=== PATIENT | female | born 1990 | race Caucasian/White ===

== ENCOUNTER 2016-10-14 08:20 | Emergency (ER) | payer OTHER ==
[~2016-10-14] VITALS: Ht 157.5 cm; Wt 49.0 kg
[2016-10-14 08:55] VITALS: BP 112/80
== END 2016-10-14 11:17 | disposition home or self-care (01) ==
LOC: ER 08:20
DX: O20.0 Threatened abortion (principal); Z3A.00 Weeks of gestation of pregnancy not specified; Z88.1 Allergy status to other antibiotic agents
CPT/HCPCS: 36415; 84702

== ENCOUNTER 2016-11-15 12:02 | Emergency (ER) | payer OTHER ==
[~2016-11-15] VITALS: Ht 157.5 cm; Wt 49.0 kg
[2016-11-15 13:33] LABS: Basophils # (auto) 0 uL; Basophils % (auto) 0.5 % (0.0-2.0); Eosinophils # (auto) 0.1 uL; Eosinophils % (auto) 2.1 % (0.0-7.0); Hematocrit 39.4 % (36.0-46.0); Hemoglobin 13.3 g/dL (12.2-16.2); Lymphocytes # (auto) 1.8 uL; Lymphocytes % (auto) 29.9 % (10.0-50.0); Mean Corpuscular Hemoglobin 30.8 pg (28.0-32.0); Mean Corpuscular Hgb Conc. 33.8 g/dL (32.0-36.0); Mean Corpuscular Volume 91.2 fL (80.0-100.0); Monocytes # (auto) 0.4 uL; Monocytes % (auto) 7.2 % (0.0-12.0); Neutrophils # (auto) 3.6 uL; Neutrophils % (auto) 60.3 % (37.0-80.0); Platelet Count (auto) 295 10^3/uL (140-450); Red Cell Distribution Width 12.4 % (11.6-16.0)
[2016-11-15 16:39] VITALS: BP 111/73
[2016-11-15 20:52] LABS: Urine Bilirubin Negative (Negative); Urine Color Colorless (Yellow); Urine Glucose Normal (Normal); Urine Ketone Negative (Negative); Urine Nitrite Negative (Negative); Urine RBC 7 /hpf (0 - 4); Urine Squamous Epithelial Cell FEW /hpf (<5); Urine Urobilinogen Normal (Negative); Urine pH 6.5 (5.0-8.0)
[2016-11-15 20:54] LABS: Urine Blood 2+ /uL (Negative)
== END 2016-11-15 17:19 | disposition home or self-care (01) ==
LOC: ER 12:02
DX: O20.0 Threatened abortion (principal); Z88.1 Allergy status to other antibiotic agents
CPT/HCPCS: 36415; 76801; 76817; 81001; 84702; 85025

== ENCOUNTER 2020-10-10 10:51 | Emergency (ER) | payer MEDICAID, OTHER ==
[~2020-10-10] VITALS: Ht 157.5 cm; Wt 52.6 kg
[2020-10-10] MEDS ORDERED: KETOROLAC TROMETH 60MG/2ML VIAL IM ONE (11:30)
[2020-10-10] MEDS ORDERED: ONDANSETRON ODT 4 MG TAB PO ONE (11:30)
[2020-10-10 12:07] VITALS: BP 135/84
== END 2020-10-10 12:16 | disposition home or self-care (01) ==
LOC: ER 10:51
DX: G24.3 Spasmodic torticollis (principal); Z88.1 Allergy status to other antibiotic agents
CPT/HCPCS: 96372; 99283; J1885; Q0162

== ENCOUNTER 2020-11-06 16:43 | Inpatient (IN) | payer MEDICAID ==
[~2020-11-06] VITALS: Ht 157.5 cm; Wt 54.9 kg
[2020-11-06 17:07] LABS: Urine WBC None Seen /hpf (0 - 5)
[2020-11-06 17:58] LABS: Urine Bacteria NONE SEEN /hpf (None Seen); Urine Blood Negative /uL (Negative); Urine Specific Gravity 1.001 (1.001-1.035)
[2020-11-06] MEDS ORDERED: SODIUM CHLORIDE 0.9% 1,000 ML IVB ONE (18:30)
[2020-11-06] MEDS ORDERED: ONDANSETRON HCL 4 MG/2 ML VIAL IV ONE (18:30)
[2020-11-06] MEDS ORDERED: MORPHINE SULFATE 4 MG/ML SYR/VIAL IV ONE (18:30)
[2020-11-06] MEDS ORDERED: FAMOTIDINE (10MG/ML) 2ML VL IV ONE (19:00)
[2020-11-06 19:14] LABS: Basophils # (auto) 0 10 ^3/uL (0-0.2); Basophils % (auto) 0.8 % (0.0-2.0); Eosinophils # (auto) 0.1 10 ^3/uL (0-0.8); Hemoglobin 13.6 g/dL (12.2-16.2); Lymphocytes # (auto) 1.8 10 ^3/uL (0.4-5.4); Lymphocytes % (auto) 34.1 % (10.0-50.0); Mean Corpuscular Hemoglobin 32.3 pg (28.0-32.0); Mean Corpuscular Volume 95.1 fL (80.0-100.0); Monocytes # (auto) 0.4 10 ^3/uL (0-1.3); Monocytes % (auto) 7.5 % (0.0-12.0); Neutrophils # (auto) 2.9 10 ^3/uL (1.6-8.6); Neutrophils % (auto) 55.6 % (37.0-80.0); Nucleated Red Blood Cells % 0.1 %; Platelet Count (auto) 321 10^3/uL (140-450); Red Blood Cells 4.21 10^6/uL (4.0-5.20); Red Cell Distribution Width 12.6 % (11.8-14.3); White Blood Cell 5.3 10^3/uL (4.4-10.8)
[2020-11-06 19:35] LABS: Albumin 3.8 g/dL (3.4-5.0); Calcium 8.9 mg/dL (8.5-10.1); Magnesium 2.5 mg/dL (1.6-2.6); Potassium 3.4 mmol/L (3.5-5.1)
[2020-11-06 19:39] LABS: BUN/Creatinine Ratio 12.1; Bilirubin, Total 0.7 mg/dL (0.2-1.0); Total Protein 7.8 g/dL (6.4-8.2)
[2020-11-06] MEDS ORDERED: MORPHINE SULF INJ 2 MG/ML SYRINGE 1ML IV PRN (22:00)
[2020-11-06] MEDS ORDERED: NITROGLYCERIN 0.4 MG SL TAB SL PRN (22:00)
[2020-11-06] MEDS: SODIUM CHLORIDE 0.9% 1,000 ML IV SCH (22:00)
[2020-11-06] MEDS: ONDANSETRON HCL 4 MG/2 ML VIAL IV PRN (23:33)
[2020-11-06] MEDS: MORPHINE SULF INJ 2 MG/ML SYRINGE 1ML IV PRN (23:33)
[2020-11-07] VITALS (7 sets, daily range): BP systolic 99–122; BP diastolic 68–84
[2020-11-07] MEDS ORDERED: CRAN250C PO (01:53)
[2020-11-07] MEDS ORDERED: MULT1TAB61 PO (01:53)
[2020-11-07] MEDS ORDERED: APPL188C PO (01:53)
[2020-11-07] MEDS ORDERED: INFLUENZA QUAD 2020-2021 0.5 ML SYRG IM ONE (02:00)
[2020-11-07] MEDS: SODIUM CHLORIDE 0.9% 1,000 ML IV SCH ×3 (08:02→22:51)
[2020-11-07] MEDS: MORPHINE SULF INJ 2 MG/ML SYRINGE 1ML IV PRN ×3 (08:02→19:44)
[2020-11-07] MEDS: PANTOPRAZOLE 40 MG TAB PO SCH (17:49)
[2020-11-07] MEDS: ONDANSETRON HCL 4 MG/2 ML VIAL IV PRN (19:44)
[2020-11-08] MEDS: MORPHINE SULF INJ 2 MG/ML SYRINGE 1ML IV PRN ×2 (00:16→09:41)
[2020-11-08 05:12] VITALS: BP 102/64
[2020-11-08 05:31] LABS: INR 1.07 (0.9-1.15)
[2020-11-08] MEDS: SUCRALFATE 1 GM/10 ML ORAL SUSP PO SCH ×3 (06:32→17:42)
[2020-11-08 08:44] VITALS: BP 108/70
[2020-11-08] MEDS ORDERED: LIDOCAINE VISCOUS 2% 15ML UD ONE (08:45)
[2020-11-08] MEDS ORDERED: SODIUM CHLORIDE LOCK 10 ML ONE (08:45)
[2020-11-08] MEDS: PANTOPRAZOLE 40 MG TAB PO SCH (09:41)
[2020-11-08] MEDS: fentaNYL CITRATE 100 MCG/2 ML VL ONE ×3 (11:32→11:38)
[2020-11-08] MEDS: MIDAZOLAM HCL 5 MG/ML-1ML VIAL ONE ×3 (11:32→11:38)
[2020-11-08] MEDS: diphenhdrAMINE HCL 50 MG/1 ML VL ONE ×2 (11:32→11:35)
[2020-11-08] MEDS: SODIUM CHLORIDE 0.9% 1,000 ML IV SCH (14:24)
[2020-11-08 16:28] VITALS: BP 104/80
[2020-11-08] MEDS ORDERED: PANT40T PO (17:43)
[2020-11-08] MEDS ORDERED: SUCR1SUS10 PO (17:43)
[2020-11-08 17:58] VITALS: BP 104/80
== END 2020-11-08 18:31 | disposition home or self-care (01) | DRG 241 ==
LOC: ER 16:43 → OVERFLOW 21:59 → CENTRAL 22:55
PROVIDERS: ADMIT Hospitalist; ATTEND Hospitalist
PROC: 0DB98ZX Excision of Duodenum, Via Natural or Artificial Opening Endoscopic, Diagnostic (ICD-10-PCS; principal; 2020-11-06)
PROC: 0DB68ZX Excision of Stomach, Via Natural or Artificial Opening Endoscopic, Diagnostic (ICD-10-PCS; 2020-11-06)
DX: K29.90 Gastroduodenitis, unspecified, without bleeding (principal); K44.9 Diaphragmatic hernia without obstruction or gangrene; K52.9 Noninfective gastroenteritis and colitis, unspecified; Z79.899 Other long term (current) drug therapy; Z88.1 Allergy status to other antibiotic agents; Z83.3 Family history of diabetes mellitus; Z20.822 Contact with and (suspected) exposure to COVID-19
CPT/HCPCS: 36415; 43239; 74176; 76705; 78226; 80053; 81001; 81025; 83605; 83690; 83735; 85025; 85610; 85730; 86850; 86900; 86901; 87426; 96361; 96374; 96375; G0378; J2250; J2405; J3490